=== PATIENT | female | born 1930 | race Hispanic/Latino ===

== ENCOUNTER 2017-05-11 08:16 | Observation (INO) | payer MEDICARE ==
[~2017-05-11] VITALS: Ht 152.4 cm; Wt 71.7 kg
[~2017-05-11 08:16] MED LIST: D-ME118S47 PO; ESCI20TA36 PO; IBUP-2353 PO; LORA1TAB3 PO; LORA2TAB2 PO
[2017-05-11 08:46] LABS: BASOPHILS % (AUTO) 0.6 % (0.0-5.0); HEMATOCRIT 48.5 % (36-48); LYMPHOCYTES % (AUTO) 20.8 % (21.0-51.0); MEAN CORPUSCULAR HEMOGLOBIN 32.8 pg (27.0-33.0); MEAN CORPUSCULAR HGB CONC 34.9 g/dL (32.0-36.0); MEAN CORPUSCULAR VOLUME 94.1 fL (79-99); MONOCYTES % (AUTO) 5.7 % (3.0-13.0); NEUTROPHILS % (AUTO) 71.9 % (40.0-77.0); NUCLEATED RED BLOOD CELLS 0.1 % (0.0-0.19); PLATELET COUNT (AUTO) 212 K/uL (130-400); RED BLOOD CELL COUNT(AUTO) 5.16 MIL/uL (4.00-5.50); WHITE BLOOD COUNT (AUTO) 6.1 K/uL (4.8-10.8)
[2017-05-11 08:54] LABS: POTASSIUM 4.3 mmol/L (3.5-5.1)
[2017-05-11 08:58] LABS: INR 0.98 (0.85-1.15); PARTIAL THROMBOPLASTIN TIME 27.5 SEC (26.3-35.5); PROTHROMBIN TIME 10.3 SEC (9.6-11.6)
[2017-05-11 09:11] LABS: ALBUMIN 3.6 g/dL (3.5-5.0); BILIRUBIN,TOTAL 0.6 mg/dL (0.2-1.0); CREATINE KINASE MB 1.3 ng/mL (0.5-3.6)
[2017-05-11 10:03] LABS: APPEARANCE,URINE Clear (CLEAR); BILIRUBIN,URINE Negative (NEGATIVE); COLOR,URINE Yellow (YELLOW); GLUCOSE, URINE (UA) Negative (NEGATIVE); KETONES,URINE Negative (NEGATIVE); LEUKOCYTE ESTERASE ,URINE Trace (NEGATIVE); NITRATE,URINE Positive (NEGATIVE); OCCULT BLOOD,URINE Negative (NEGATIVE); PH,URINE 6.5 (5.0-8.0); PROTEIN,URINE Negative (NEGATIVE); UROBILINOGEN,URINE 0.2 mg/dL (0.2-1.0)
[2017-05-11 10:28] LABS: BACTERIA,URINE Moderate /HPF (None Seen); RBC,URINE None Seen /HPF (0-1)
[2017-05-11] MEDS ORDERED: CEFTRIAXONE SODIUM 1 GM ONE (11:29)
[2017-05-11] MEDS ORDERED: POTASSIUM CHLORIDE 20MEQ/100ML 100 ML IV PRN (12:15)
[2017-05-11] MEDS ORDERED: POTASSIUM CHLORIDE 20 MEQ ERTAB PO PRN (12:15)
[2017-05-11] MEDS ORDERED: ONDANSETRON HCL 4 MG/2 ML VIAL IV PRN (12:15)
[2017-05-11] MEDS ORDERED: CEFTRIAXONE 1GM/D5W 50ML 50 ML IV SCH (12:15)
[2017-05-11] MEDS ORDERED: LACTULOSE 20 GM/30 ML UDCUP PO PRN (12:15)
[2017-05-11] MEDS ORDERED: NITROGLYCERIN 0.4 MG SL TAB SL PRN (12:15)
[2017-05-11] MEDS ORDERED: LIDOCAINE HCL-MPF 1% 2ML VIAL IVP PRN (12:15)
[2017-05-11] MEDS ORDERED: ACETAMINOPHEN 325 MG TAB PO PRN ×2 (12:15)
[2017-05-11] MEDS ORDERED: HYDRALAZINE HCL 20 MG/ML VIAL IV PRN (12:15)
[2017-05-11] MEDS ORDERED: MAG HYDROX/AL HYDROX/SIMETH ES 30 ML SUSP UDCUP PO PRN (12:15)
[2017-05-11] MEDS ORDERED: ACETAMINOPHEN-CODEINE 300/30MG TAB PO PRN (12:15)
[2017-05-11] MEDS ORDERED: MORPHINE SULFATE 2 MG/ML 1ML SYG IV PRN (12:15)
[2017-05-11] MEDS ORDERED: POTASSIUM CHLORIDE 10% ELIXIR 20 MEQ/15 ML UDCUP PO PRN (12:15)
[2017-05-11] MEDS ORDERED: GUAIFENESIN-DM 200/20 MG 10 ML PO PRN (12:15)
[2017-05-11 19:55] VITALS: BP 136/83
[2017-05-11] MEDS: SODIUM CHLORIDE 0.9% 1000ML 1,000 ML IV SCH (20:28)
[2017-05-11 23:42] VITALS: BP 140/83
[2017-05-12] MEDS: SODIUM CHLORIDE 0.9% 1000ML 1,000 ML IV SCH (01:32)
[2017-05-12 03:54] VITALS: BP 124/73
[2017-05-12 04:09] LABS: HEMATOCRIT 47.2 % (36-48); MEAN CORPUSCULAR HEMOGLOBIN 32.1 pg (27.0-33.0); MEAN CORPUSCULAR HGB CONC 34.4 g/dL (32.0-36.0); MEAN CORPUSCULAR VOLUME 93.3 fL (79-99); PLATELET COUNT (AUTO) 213 K/uL (130-400); RED BLOOD CELL COUNT(AUTO) 5.06 MIL/uL (4.00-5.50); RED CELL DISTRIBUTION WIDTH 14.2 % (11.0-15.5); WHITE BLOOD COUNT (AUTO) 5.5 K/uL (4.8-10.8)
[2017-05-12 04:31] LABS: CREATININE 0.9 mg/dL (0.5-1.5); POTASSIUM 3.9 mmol/L (3.5-5.1)
[2017-05-12 08:00] VITALS: BP 132/70
[2017-05-12] MEDS ORDERED: LEVO250T2 PO (08:46)
[2017-05-12] MEDS ORDERED: FAMOTIDINE/PF 20 MG/2 ML VIAL IV SCH (09:00)
[2017-05-12] MEDS ORDERED: CEFTRIAXONE SODIUM 1 GM IVP SCH (11:00)
== END 2017-05-12 15:10 | disposition home or self-care (01) ==
LOC: EDH 08:16 → EDHIP 12:12 → 3AH 19:36
PROVIDERS: ADMIT Internal Medicine; ATTEND Internal Medicine
DX: M47.812 Spondylosis without myelopathy or radiculopathy, cervical region (principal); N39.0 Urinary tract infection, site not specified; I10 Essential (primary) hypertension; F41.9 Anxiety disorder, unspecified; F32.9 Major depressive disorder, single episode, unspecified; R79.1 Abnormal coagulation profile; Z90.710 Acquired absence of both cervix and uterus
CPT/HCPCS: 36415 ×2; 70450; 71045; 72125; 80048; 80053; 81001; 82550; 82553; 84484; 85025; 85027; 85610; 85730; 87088; 93005; 96361; 96374; 96375; 99285; G0378 ×27; J0696 ×3; J2405; J3490; J7030

== ENCOUNTER 2019-02-08 14:06 | Inpatient (IN) | payer MEDICARE ==
[2019-02-08] VITALS (15 sets, daily range): BP systolic 75–129; BP diastolic 36–69
[~2019-02-08] VITALS: Ht 157.5 cm; Wt 83.6 kg
[~2019-02-08 14:06] MED LIST changes: -D-ME118S47 PO; +HYDR-4030 PO; -IBUP-2353 PO; +IBUP-2784 PO; -LORA2TAB2 PO; +QUET50TA55 PO
[2019-02-08] MEDS ORDERED: SODIUM CHLORIDE 0.9% 500ML 500 ML IV ONE ×2 (14:24→15:36)
[2019-02-08 14:28] LABS: BASOPHILS % (AUTO) 0.7 % (0.0-5.0); EOSINOPHILS % (AUTO) 0.1 % (0.0-8.0); LYMPHOCYTES % (AUTO) 6.7 % (21.0-51.0); MEAN CORPUSCULAR HEMOGLOBIN 31.5 pg (27.0-33.0); MEAN CORPUSCULAR HGB CONC 33.7 g/dL (32.0-36.0); MEAN CORPUSCULAR VOLUME 93.5 fL (79-99); MONOCYTES % (AUTO) 11.8 % (3.0-13.0); NEUTROPHILS % (AUTO) 80.7 % (40.0-77.0); PLATELET COUNT (AUTO) 188 K/uL (130-400); RED CELL DISTRIBUTION WIDTH 13.8 % (11.0-15.5); WHITE BLOOD COUNT (AUTO) 9.5 K/uL (4.8-10.8)
[2019-02-08 14:42] LABS: INR 1.13 (0.85-1.15); PARTIAL THROMBOPLASTIN TIME 27.1 SEC (26.3-35.5); PROTHROMBIN TIME 11.8 SEC (9.6-11.6)
[2019-02-08 14:51] LABS: ALBUMIN 2.7 g/dL (3.5-5.0); BILIRUBIN,TOTAL 0.9 mg/dL (0.2-1.0); TOTAL PROTEIN, SERUM 6.3 g/dL (6.0-8.3)
[2019-02-08 14:58] LABS: ABG BASE EXCESS 5.1 mmol/L (-2.0-3.0); ABG HCO3 32.3 mmol/L (21.0-28.0); ABG OXYGEN SATURATION 95.3 % (95.0-99.0); ABG PCO2 58 mmHg (32-45)
[2019-02-08] MEDS ORDERED: SODIUM CHLORIDE 0.9% 50 ML IV ONE (14:59)
[2019-02-08] MEDS ORDERED: AMIODARONE HCL 50 MG/ML 3 ML VIAL ONE (14:59)
[2019-02-08] MEDS ORDERED: AMIODARONE HCL 150 MG in DEXTROSE 5%-WATER 100 ML IV SCH (15:06)
[2019-02-08] MEDS ORDERED: AMIODARONE HCL 900 MG in DEXTROSE 5%-WATER 500 ML IV NR (15:06)
[2019-02-08 15:12] LABS: TROPONIN I 0.07 ng/mL (0.00-0.06)
[2019-02-08 15:14] LABS: APPEARANCE,URINE CLOUDY (CLEAR); BILIRUBIN,URINE MODERATE (NEGATIVE); COLOR,URINE YELLOW (YELLOW); GLUCOSE, URINE (UA) NEGATIVE (NEGATIVE); KETONES,URINE 5 mg/dL (NEGATIVE); LEUKOCYTE ESTERASE ,URINE MODERATE (NEGATIVE); NITRATE,URINE NEGATIVE (NEGATIVE); OCCULT BLOOD,URINE MODERATE (NEGATIVE); PH,URINE 5.5 (5.0-8.0); PROTEIN,URINE 100 mg/dL (NEGATIVE)
[2019-02-08 15:27] LABS: BACTERIA,URINE Many /HPF (None Seen); MUCUS,URINE Few LPF (None Seen)
[2019-02-08] MEDS ORDERED: CEFTRIAXONE SODIUM 1 GM ONE (15:37)
[2019-02-08] MEDS: CEFTRIAXONE SODIUM 1 GM IV SCH (15:39)
[2019-02-08 15:54] LABS: AMPHET/METH SCREEN,URINE NEGATIVE (NEGATIVE); BARBITURATE SCREEN, URINE NEGATIVE (NEGATIVE); BENZODIAZEPINES SCREEN,URINE NEGATIVE (NEGATIVE); CANNABINOID SCREEN,URINE NEGATIVE (NEGATIVE); COCAINE SCREEN,URINE NEGATIVE (NEGATIVE); OPIATE SCREEN,URINE NEGATIVE (NEGATIVE); PHENCYCLIDINE SCREEN,URINE NEGATIVE (NEGATIVE)
[2019-02-08] MEDS ORDERED: ONDANSETRON HCL 4 MG/2 ML VIAL IVP PRN (16:30)
[2019-02-08] MEDS: DILTIAZEM HCL 60 MG TABLET PO SCH ×2 (16:30→22:30)
[2019-02-08] MEDS ORDERED: ACETAMINOPHEN 325 MG TAB PO PRN (16:30)
[2019-02-08 16:53] LABS: MAGNESIUM 1.4 mg/dL (1.80-2.40); PHOSPHORUS 3.3 mg/dL (2.5-4.9)
[2019-02-08] MEDS ORDERED: SODIUM CHLORIDE 0.9% 1000ML 1,000 ML IV ONE ×4 (17:05→19:01)
[2019-02-08] MEDS ORDERED: ACETAMINOPHEN 650 MG SUPPOSITORY RC ONE (17:51)
[2019-02-08] MEDS ORDERED: MEROPENEM 1 GM VIAL ONE (18:11)
[2019-02-08] MEDS ORDERED: MAGNESIUM 2GM PREMIX 50ML 50 ML IV ONE (18:11)
[2019-02-08] MEDS ORDERED: ACETAMINOPHEN 650 MG SUPPOSITORY RC PRN (18:15)
[2019-02-08] MEDS ORDERED: RENAL DOSE IV SCH (18:15)
[2019-02-08] MEDS: MEROPENEM 500 MG VIAL IVP SCH (18:17)
[2019-02-08] MEDS ORDERED: ENOXAPARIN SODIUM 40 MG/0.4 ML SYRINGE SQ ONE (19:07)
[2019-02-08] MEDS ORDERED: DILTIAZEM HCL 125 MG/25 ML VIAL IV ONE (19:15)
[2019-02-08] MEDS ORDERED: SODIUM CHLORIDE 0.9% 100 ML IV ONE (19:15)
[2019-02-08] MEDS ORDERED: ASPIRIN 300 MG SUPPOSITORY PR ONE ×2 (19:16→21:55)
[2019-02-08] MEDS ORDERED: ENOXAPARIN SODIUM 100 MG/1 ML SQ ONE (19:17)
[2019-02-08 19:38] LABS: ABG BASE EXCESS 1.2 mmol/L (-2.0-3.0); ABG HCO3 29.4 mmol/L (21.0-28.0); ABG OXYGEN SATURATION 93.1 % (95.0-99.0); ABG PCO2 62 mmHg (32-45)
[2019-02-08] MEDS: SODIUM CHLORIDE 0.9% 1000ML 1,000 ML IV SCH (19:50)
[2019-02-08] MEDS ORDERED: VANCOMYCIN PROTOCOL PER PHARMACY IV SCH (21:00)
[2019-02-08] MEDS ORDERED: COMPOUND IV REFRIGERATED 1 EACH IVSOLN MISC PRN (21:00)
[2019-02-08] MEDS ORDERED: FAMOTIDINE/PF 20 MG/2 ML VIAL IV SCH (21:00)
[2019-02-08] MEDS ORDERED: VANCOMYCIN 1.5 GM in SODIUM CHLORIDE 0.9% 250 ML IV ONE (21:00)
[2019-02-08] MEDS ORDERED: ACET-2123 PO (23:07)
[2019-02-08] MEDS ORDERED: OMEP-50 PO (23:08)
[2019-02-08] MEDS ORDERED: DONE5TAB33 PO (23:10)
[2019-02-08] MEDS ORDERED: TRAM50TA4 PO (23:11)
[2019-02-08] MEDS ORDERED: RISP1TAB26 PO (23:12)
[2019-02-09] VITALS (77 sets, daily range): BP systolic 77–151; BP diastolic 35–88
[2019-02-09] MEDS: SODIUM CHLORIDE 0.9% 1000ML 1,000 ML IV SCH ×5 (02:26→21:24)
[2019-02-09] MEDS: MEROPENEM 500 MG VIAL IVP SCH ×3 (02:31→17:15)
[2019-02-09 03:32] LABS: BASOPHILS % (AUTO) 0.7 % (0.0-5.0); EOSINOPHILS % (AUTO) 0.6 % (0.0-8.0); HEMATOCRIT 41.5 % (36-48); LYMPHOCYTES % (AUTO) 7.2 % (21.0-51.0); MEAN CORPUSCULAR HEMOGLOBIN 31.5 pg (27.0-33.0); MEAN CORPUSCULAR HGB CONC 33.1 g/dL (32.0-36.0); MONOCYTES % (AUTO) 9.5 % (3.0-13.0); PLATELET COUNT (AUTO) 166 K/uL (130-400); RED BLOOD CELL COUNT(AUTO) 4.37 MIL/uL (4.00-5.50); RED CELL DISTRIBUTION WIDTH 13.7 % (11.0-15.5); WHITE BLOOD COUNT (AUTO) 12.2 K/uL (4.8-10.8)
[2019-02-09 03:51] LABS: ALANINE AMINOTRANSFERASE 19 U/L (12-78); ALBUMIN 2.3 g/dL (3.5-5.0); ASPARTATE AMINOTRANSFERASE 28 U/L (10-37); BILIRUBIN,TOTAL 0.7 mg/dL (0.2-1.0); CARBON DIOXIDE 33 mmol/L (21-32); CHLORIDE 102 mmol/L (101-111); CREATININE 1.1 mg/dL (0.5-1.5); GLOMERULAR FILTR. RATE CALC 50 mL/min (>60); GLUCOSE,RANDOM 103 mg/dL (70-105); POTASSIUM 3.7 mmol/L (3.5-5.1); SODIUM SERUM 139 mmol/L (136-145); TOTAL PROTEIN, SERUM 5.6 g/dL (6.0-8.3); UREA NITROGEN, BLOOD 19 mg/dL (7-18)
[2019-02-09 04:01] LABS: ABG BASE EXCESS 2.9 mmol/L (-2.0-3.0); ABG HCO3 30.6 mmol/L (21.0-28.0); ABG OXYGEN SATURATION 93.4 % (95.0-99.0); ABG PCO2 60 mmHg (32-45)
[2019-02-09] MEDS: DILTIAZEM HCL 60 MG TABLET PO SCH ×4 (04:30→21:23)
[2019-02-09] MEDS: FAMOTIDINE/PF 20 MG/2 ML VIAL IV SCH (08:12)
[2019-02-09] MEDS: DILTIAZEM HCL 125 MG/25 ML 125 MG in SODIUM CHLORIDE 0.9% 100 ML IV SCH ×2 (08:13→18:12)
[2019-02-09] MEDS: ENOXAPARIN SODIUM 80 MG/0.8 ML SQ SCH (08:15)
--- NOTE | 2019-02-09 08:41 | NUR ---
OLIVER MATTHEWS, IN ROOM ASSESSING PT. AND SPEAKING WITH PT.'S DAUGHTER AT BEDSIDE RE:PLAN OF CARE; QUESTIONS ANSWERED BY OLIVER MATTHEWS. UPDATED Ayan MEREDITH ON CURRENT MEDICATION REGIMEN AND VS., VERBALIZED UNDERSTANDING. DAUGHTER VERBALIZED UNDERSTANDING RE:PLAN OF CARE.
[2019-02-09] MEDS ORDERED: ENOXAPARIN SODIUM 30 MG/0.3 ML SQ SCH (09:00)
--- NOTE | 2019-02-09 11:43 | NUR ---
ARUN Fields met with pt and daughter Amina. Sw eduated pt and daughter on MPOA and pt wanting daughter to be decision maker. Pt unable to sign name, made alejandro as best she could in front of several witnesses. Original given to daughter and copy placed on chart.
--- NOTE | 2019-02-09 12:14 | NUR ---
DR. PABLO IN ROOM ASSESSING/SPEAKING WITH PT. ALSO SPEAKING WITH PT.'S DAUGHTER AT BEDSIDE RE:PLAN OF CARE. QUESTIONS ANSWERED BY DR. PABLO, DAUGHTER VERBALIZED UNDERSTANDING.
--- NOTE | 2019-02-09 13:33 | NUR ---
DR. HANSEN IN ROOM ASSESSING PT.; UPDATED ON CURRENT MEDICATION REGIMEN AND VS, DR. HANSEN VIEWING CXR. ORDERS RECEIVED.
[2019-02-09] MEDS ORDERED: LORAZEPAM 1 MG TABLET PO PRN (13:45)
[2019-02-09] MEDS ORDERED: ACETAMINOPHEN EXTRA STRENGTH 500 MG TABLET PO PRN (13:45)
[2019-02-09] MEDS ORDERED: TRAMADOL HCL 50 MG TABLET PO PRN (13:45)
--- NOTE | 2019-02-09 14:00 | NUR ---
REPOSITIONED FOR COMFORT. CALL LIGHT WITHIN REACH. BED LOW SIDE RAILS UP X3. ROOM DOOR OPEN, VISIBLE FROM NURSE'S STATION.
[2019-02-09 15:16] LABS: CREATINE KINASE, TOTAL 39 U/L (21-232); MYOGLOBIN 66 ng/mL (10-92); TROPONIN I < 0.04 ng/mL (0.00-0.06)
[2019-02-09] MEDS: CEFTRIAXONE SODIUM 1 GM IV SCH (15:37)
[2019-02-09] MEDS: FUROSEMIDE 10 MG/ML 2ML VIAL IV SCH (15:37)
--- NOTE | 2019-02-09 16:57 | NUR ---
DC PLAN PATIENT NOTED CONFUSED, MUMBLING AND GRABBING THINGS THAT ARE NOT THERE IN FRONT OF HER. DAUGHTER AT BEDSIDE. PER DAUGHTER, PATIENT LIVES WITH HER, WAS INDEPENDENT 1 MONTH AGO BUT NOW REQUIRES TOTAL ASSISTANCE WITH ALL ADLS. HAS PROVIDER SERVICES DAILY FOR 6HRS. ALSO HAS OXYGEN, HOSPITAL BED, WHEELCHAIR, AND WALKER. DAUGHTER MADE AWARE OF ORDER FROM MD RECOMMENDING SNF. PER DAUGHTER, DECLINING SNF AT THE MOMENT, FEELS SAFE TO RETURN HOME. Addendum: 02/09/19 at 1701 by ROME LO Amended: Links added.
[2019-02-09] MEDS: VANCOMYCIN 1GM+NS 250ML 250 ML IV SCH (17:15)
[2019-02-09] MEDS: DONEPEZIL HCL 5 MG TAB PO SCH (17:16)
--- NOTE | 2019-02-09 17:29 | NUR ---
RECEIVED CALL FROM DR. Gema MEJIA, STATES WILL BE IN TO SEE PT. LATER TODAY.
--- NOTE | 2019-02-09 17:58 | NUR ---
DR. Gema MEJIA IN ROOM ASSESSING PT. AND SPEAKING WITH PT.'S DAUGHTER AT BEDSIDE. QUESTIONS ANSWERED BY DR. Gema MEJIA.
--- NOTE | 2019-02-09 18:02 | NUR ---
DR. Gema MEJIA REVIEWING [facility] ON [facility].
--- NOTE | 2019-02-09 18:20 | NUR ---
DILTIAZEM GTT DECREASED TO 5MG/HR VIA IV PUMP.
[2019-02-09] MEDS: RISPERIDONE 1 MG TABLET PO SCH (21:23)
[2019-02-10] VITALS (39 sets, daily range): BP systolic 82–134; BP diastolic 40–101
[2019-02-10] MEDS: MEROPENEM 500 MG VIAL IVP SCH ×3 (02:37→16:38)
[2019-02-10] MEDS: FUROSEMIDE 10 MG/ML 2ML VIAL IV SCH (02:38)
[2019-02-10 03:37] LABS: HEMATOCRIT 39.5 % (36-48); MEAN CORPUSCULAR HEMOGLOBIN 31.7 pg (27.0-33.0); MEAN CORPUSCULAR HGB CONC 33.3 g/dL (32.0-36.0); MEAN CORPUSCULAR VOLUME 95.2 fL (79-99); PLATELET COUNT (AUTO) 190 K/uL (130-400); RED BLOOD CELL COUNT(AUTO) 4.15 MIL/uL (4.00-5.50); RED CELL DISTRIBUTION WIDTH 13.5 % (11.0-15.5); WHITE BLOOD COUNT (AUTO) 11.1 K/uL (4.8-10.8)
[2019-02-10 03:44] LABS: HEMOGLOBIN A1C 5.8 % (4.0-6.0)
[2019-02-10 03:51] LABS: CARBON DIOXIDE 31 mmol/L (21-32); CHLORIDE 104 mmol/L (101-111); CREATININE 0.9 mg/dL (0.5-1.5); GLOMERULAR FILTR. RATE CALC 63 mL/min (>60); GLUCOSE,RANDOM 121 mg/dL (70-105); PHOSPHORUS 2.7 mg/dL (2.5-4.9); POTASSIUM 3.7 mmol/L (3.5-5.1); SODIUM SERUM 141 mmol/L (136-145); UREA NITROGEN, BLOOD 19 mg/dL (7-18)
[2019-02-10] MEDS ORDERED: MAGNESIUM 2GM PREMIX 50ML 50 ML IV ONE (05:04)
[2019-02-10] MEDS: DILTIAZEM HCL 60 MG TABLET PO SCH ×3 (05:09→16:39)
[2019-02-10] MEDS: SODIUM CHLORIDE 0.9% 1000ML 1,000 ML IV SCH (08:27)
[2019-02-10] MEDS: Escitalopram Oxalate 20 MG PO SCH (09:00)
[2019-02-10] MEDS: ENOXAPARIN SODIUM 80 MG/0.8 ML SQ SCH (09:25)
[2019-02-10] MEDS: RISPERIDONE 1 MG TABLET PO SCH ×2 (09:25→21:14)
[2019-02-10] MEDS: FAMOTIDINE/PF 20 MG/2 ML VIAL IV SCH (09:25)
--- NOTE | 2019-02-10 09:53 | NUR ---
DYSPHAGIA EVAL COMPLETED. +S/S OF ASPIRATION WITH THIN LIQUIDS. RECOMMEND PUREED TEXTURE AND NECTAR THICK LIQUIDS; PILLS CRUSHED WITH PUREE. PATIENT WOULD BENEFIT FROM SKILLED DYSPHAGIA INTERVENTION TO ADDRESS DEFICITS IN ORAL MOTOR FUNCTION AND OVERALL SWALLOW FUNCTION. LTG 1: PATIENT WILL IMPROVE ORAL MOTOR FUNCTION TO FACILITATE BOLUS PREPARATION, CONTROL, AND MANIPULATION. LTG 2: PATIENT WILL SAFELY CONSUME LEAST RESTRICTIVE DIET WITH NO S/S OF ASPIRATION/PENETRATION OBSERVED. STG 1: PATIENT WILL PARTICIPATE IN ACTIVE ORAL MOTOR EXERCISES TO IMPROVE LABIAL STRENGTH, TONE, AND ROM IN SETS OF 5X5. STG 2: PATIENT WILL PARTICIPATE IN ACTIVE ORAL MOTOR EXERCISES TO IMPROVE LINGUAL STRENGTH, TONE, AND ROM IN SETS OF 5X5. STG 3: PATIENT WILL SAFELY CONSUME PUREED TEXTURE WITH NO OVERT S/S OF ASPIRATION/PENETRATION IN 100% OF TRIALS. STG 4: PATIENT WILL SAFELY CONSUME NECTAR THICK LIQUIDS WITH NO OVERT S/S OF ASPIRATION/PENETRATION IN 100% OF TRIALS. STG 5: PATIENT WILL UTILIZE SAFE SWALLOW COMPENSATORY STRATEGIES DURING ORAL INTAKE WITH 100% ACCURACY. Addendum: 02/10/[address] [place] RIBERA Amended: Links added.
[2019-02-10] MEDS: LORAZEPAM 2 MG/ML 1 ML VIAL IVP PRN (16:32)
[2019-02-10] MEDS: VANCOMYCIN 1GM+NS 250ML 250 ML IV SCH (16:38)
[2019-02-10] MEDS: DONEPEZIL HCL 5 MG TAB PO SCH (16:38)
[2019-02-10] MEDS ORDERED: IOHEXOL-350 75 ML VIAL IV ONE (17:37)
[2019-02-10] MEDS: DILTIAZEM HCL 125 MG/25 ML 125 MG in SODIUM CHLORIDE 0.9% 100 ML IV SCH (18:15)
[2019-02-10] MEDS: METOPROLOL TARTRATE 25 MG TAB PO SCH (18:16)
[2019-02-10] MEDS: ALPRAZOLAM 0.5 MG TABLET PO SCH (21:14)
[2019-02-10] MEDS ORDERED: ENOXAPARIN SODIUM 80 MG/0.8 ML SQ SCH (21:30)
[2019-02-10] MEDS ORDERED: PHARMACY COMMUNICATION MISC SCH (21:30)
[2019-02-11] VITALS (28 sets, daily range): BP systolic 59–120; BP diastolic 32–70
[2019-02-11] MEDS ORDERED: DILTIAZEM HCL 60 MG TABLET PO SCH
[2019-02-11] MEDS: METOPROLOL TARTRATE 25 MG TAB PO SCH ×4 (01:22→18:57)
[2019-02-11] MEDS: MEROPENEM 500 MG VIAL IVP SCH ×3 (01:32→18:57)
[2019-02-11] MEDS: Escitalopram Oxalate 20 MG PO SCH (09:00)
[2019-02-11] MEDS ORDERED: ENOXAPARIN SODIUM 80 MG/0.8 ML SQ SCH (09:00)
[2019-02-11 09:16] LABS: BASOPHILS % (AUTO) 0.6 % (0.0-5.0); EOSINOPHILS % (AUTO) 0.1 % (0.0-8.0); HEMATOCRIT 41.2 % (36-48); LYMPHOCYTES % (AUTO) 4.8 % (21.0-51.0); MEAN CORPUSCULAR HEMOGLOBIN 31.5 pg (27.0-33.0); MEAN CORPUSCULAR HGB CONC 32.9 g/dL (32.0-36.0); MEAN CORPUSCULAR VOLUME 95.7 fL (79-99); MONOCYTES % (AUTO) 8.4 % (3.0-13.0); NEUTROPHILS % (AUTO) 86.1 % (40.0-77.0); PLATELET COUNT (AUTO) 203 K/uL (130-400); WHITE BLOOD COUNT (AUTO) 9.9 K/uL (4.8-10.8)
[2019-02-11] MEDS: ALPRAZOLAM 0.5 MG TABLET PO SCH ×2 (09:29→20:55)
[2019-02-11] MEDS: FAMOTIDINE/PF 20 MG/2 ML VIAL IV SCH (09:29)
[2019-02-11] MEDS: RISPERIDONE 1 MG TABLET PO SCH ×2 (09:29→20:55)
[2019-02-11 09:31] LABS: CARBON DIOXIDE 33 mmol/L (21-32); CHLORIDE 105 mmol/L (101-111); CREATININE 0.9 mg/dL (0.5-1.5); GLOMERULAR FILTR. RATE CALC 63 mL/min (>60); GLUCOSE,RANDOM 142 mg/dL (70-105); SODIUM SERUM 143 mmol/L (136-145); UREA NITROGEN, BLOOD 20 mg/dL (7-18)
[2019-02-11 09:34] LABS: ALBUMIN 2.2 g/dL (3.5-5.0); PHOSPHORUS 2.8 mg/dL (2.5-4.9)
[2019-02-11] MEDS: VERAPAMIL HCL 80 MG TABLET PO SCH ×3 (09:47→20:55)
--- NOTE | 2019-02-11 12:45 | NUR ---
Nutrition Intervention: Nutrition consult due to poor appetite/adv. age. Pt. with advanced age of 88y.o. Pt. admitted with Dx of [place] A. Fib. with RVR. Pt. on Heart Healthy Pureed diet with Racetrack Thick Liquids. As per family members, pt. with poor p.o. intake. Labs reviewed(Alb 2.2). Spoke with pt's family members regarding nutritional supplementation and agreed to let pt. try. LBM: 02/07/19. SR-16, loose. BMI: 31.2, overweight for age. Pt. S/P dysphagia evaluation on 02/10/19- TOOLER rec. Pureed texture/Racetrack Thick Liquids. Recommendations: 1) Continue current diet. 2) Rec. Vanilla or [place] Ensure BID with B'fast and dinner meals. 3) Rec. stool softener or laxative to help alleviate lower GI distress. 4) Continue to monitor pt's nutritional status. 5) Consult RD as nutrition concerns arise. Addendum: 02/11/19 at [address] Amended: Links added.
[2019-02-11] MEDS: IPRATROPIUM/ALBUTEROL SULFATE 3 ML SOLUTION IH SCH ×3 (13:28→23:16)
[2019-02-11] MEDS: DONEPEZIL HCL 5 MG TAB PO SCH (18:57)
--- NOTE | 2019-02-11 20:38 | NUR ---
RECEIVED CALL FROM DR BERG. UPDATED REGARDING PT STATUS, V/S AND ALL RECENT LAB RESULTS. ORDERS RECEIVED AND CARRIED OUT.
[2019-02-11] MEDS: APIXABAN 5 MG TABLET PO SCH (20:55)
[2019-02-11] MEDS: VANCOMYCIN 1GM+NS 250ML 250 ML IV SCH (20:57)
[2019-02-12] VITALS (29 sets, daily range): BP systolic 73–135; BP diastolic 30–81
[2019-02-12] MEDS: METOPROLOL TARTRATE 25 MG TAB PO SCH ×5 (00:21→22:00)
[2019-02-12] MEDS: MEROPENEM 500 MG VIAL IVP SCH ×3 (03:06→17:25)
[2019-02-12 04:18] LABS: POTASSIUM 3.6 mmol/L (3.5-5.1)
[2019-02-12] MEDS: IPRATROPIUM/ALBUTEROL SULFATE 3 ML SOLUTION IH SCH ×4 (06:20→23:18)
[2019-02-12] MEDS: FAMOTIDINE/PF 20 MG/2 ML VIAL IV SCH (08:24)
[2019-02-12] MEDS: ALPRAZOLAM 0.5 MG TABLET PO SCH ×2 (08:24→20:48)
[2019-02-12] MEDS: APIXABAN 5 MG TABLET PO SCH ×2 (08:24→20:48)
[2019-02-12] MEDS: VERAPAMIL HCL 80 MG TABLET PO SCH ×3 (08:24→20:49)
[2019-02-12] MEDS: RISPERIDONE 1 MG TABLET PO SCH ×2 (08:25→20:48)
[2019-02-12] MEDS: Escitalopram Oxalate 20 MG PO SCH (08:25)
[2019-02-12] MEDS: SODIUM CHLORIDE 0.9% 1000ML 1,000 ML IV SCH ×2 (10:45→23:39)
--- NOTE | 2019-02-12 12:00 | NUR ---
DNR STATUS DR BERG SPOKE EXTENSIVELY WITH PATIENT'S DAUGHTER REGARDING DNR STATUS. DAUGHTER STATES THAT SHE NEEDS TO SPEAK WITH HER SISTER ABOUT IT BUT THAT SHE DOES WANT HER TO GO "NATURALLY". CONVERSATION WAS IN FRISIAN AND PATIENT WAS ABLE TO ASK MULTIPLE QUESTIONS. WILL WAIT FOR DECISION AFTER DISCUSSION WITH SISTER.
--- NOTE | 2019-02-12 16:15 | NUR ---
PATIENT NOW DNR DAUGHTERS NOW BOTH HERE AND STATE THAT THEY DO WANT TO MAKE HER DNR. THEY UNDERSTAND THAT THIS DOES NOT AFFECT HOW WE WILL TREAT HER UNLESS SHE STOP BREATHING/HEART STOPS. DNR SIGNED
[2019-02-12] MEDS: VANCOMYCIN 1GM+NS 250ML 250 ML IV SCH (17:20)
[2019-02-12] MEDS: DONEPEZIL HCL 5 MG TAB PO SCH (17:20)
--- NOTE | 2019-02-12 20:00 | NUR ---
ASSESSMENT PT RESTING QUIETLY IN BED, IV FLUIDS INFUSING, DAUGHTER AT BEDSIDE. ASSESSMENT COMPLETED, CALLBELL REVIEWED AND WITHIN REACH. MONITORS REVIEWED AND ADJUSTED. WHITE BOARD UP-DATED. ASSESSMENT COMPLETED, SEE FLOW SHEET.
[2019-02-13] VITALS (12 sets, daily range): BP systolic 90–138; BP diastolic 50–97
[2019-02-13] MEDS: MEROPENEM 500 MG VIAL IVP SCH ×3 (02:38→18:29)
--- NOTE | 2019-02-13 03:23 | NUR ---
ASSESSMENT PT RESTING QUIETLY IN BED, IV FLUIDS INFUSING, DAUGHTER AT BEDSIDE. ASSESSMENT COMPLETED, SEE FLOW SHEET. CALLBELL WITHIN REACH.
[2019-02-13 03:27] LABS: BASOPHILS % (AUTO) 0.8 % (0.0-5.0); EOSINOPHILS % (AUTO) 0.5 % (0.0-8.0); HEMATOCRIT 38.3 % (36-48); LYMPHOCYTES % (AUTO) 10.9 % (21.0-51.0); MEAN CORPUSCULAR HEMOGLOBIN 31.4 pg (27.0-33.0); MEAN CORPUSCULAR HGB CONC 32.7 g/dL (32.0-36.0); NEUTROPHILS % (AUTO) 75.8 % (40.0-77.0); PLATELET COUNT (AUTO) 227 K/uL (130-400); RED BLOOD CELL COUNT(AUTO) 3.99 MIL/uL (4.00-5.50); RED CELL DISTRIBUTION WIDTH 13.8 % (11.0-15.5); WHITE BLOOD COUNT (AUTO) 6.7 K/uL (4.8-10.8)
[2019-02-13 03:46] LABS: B-TYPE NATRIURETIC PEPTIDE 603 pg/mL (0-100)
[2019-02-13] MEDS: IPRATROPIUM/ALBUTEROL SULFATE 3 ML SOLUTION IH SCH ×4 (06:57→23:48)
--- NOTE | 2019-02-13 07:00 | NUR ---
RECEIVED REPORT FROM ROME ANDREW.
[2019-02-13] MEDS: VERAPAMIL HCL 80 MG TABLET PO SCH ×3 (07:53→21:00)
[2019-02-13] MEDS: FAMOTIDINE/PF 20 MG/2 ML VIAL IV SCH (07:53)
[2019-02-13] MEDS: ALPRAZOLAM 0.5 MG TABLET PO SCH ×2 (07:53→21:39)
[2019-02-13] MEDS: METOPROLOL TARTRATE 25 MG TAB PO SCH ×3 (07:54→21:38)
[2019-02-13] MEDS: APIXABAN 5 MG TABLET PO SCH ×2 (07:54→21:38)
[2019-02-13] MEDS: RISPERIDONE 1 MG TABLET PO SCH ×2 (07:54→21:38)
--- NOTE | 2019-02-13 08:00 | NUR ---
REMOVED BI PAP MASK BY RT CANDIDO AND PLACED ON 5L NC FOR PT TO EAT BREAKFAST MEAL. O2 SAT 96-94%. WILL CONTINUE TO MONITOR.
--- NOTE | 2019-02-13 08:10 | NUR ---
GIVEN SCHEDULED MEDICATIONS CRUSHED AND WITH APPLESAUCE. TOLERATED WELL. DAUGHTER, CHRISTINA FEEDING PATIENT. WILL CONTINUE TO MONITOR.
[2019-02-13] MEDS: Escitalopram Oxalate 20 MG PO SCH (09:00)
--- NOTE | 2019-02-13 10:00 | NUR ---
DR. PABLO AND HARDY NELSON, GAS DISTRIBUTION AND EMERGENCY CLERK IN TO SEE PATIENT, UPDATE GIVEN. ORDERS RECEIVED AND CARRIED OUT.
[2019-02-13] MEDS ORDERED: BISACODYL 10 MG SUPP.RECT RC PRN (10:15)
[2019-02-13] MEDS ORDERED: LACTULOSE 20 GM/30 ML UDCUP PO PRN (10:15)
[2019-02-13 10:43] LABS: INR 1.19 (0.85-1.15); PROTHROMBIN TIME 12.4 SEC (9.6-11.6)
--- NOTE | 2019-02-13 11:05 | NUR ---
RESPIRATORY RATE 28/MIN AND SHALLOW. PLACED BACK ON BI PAP BY GABRIELA RT. FIO2 40%. WILL CONTINUE TO MONITOR. RE-APPLIED MITTENS DUE TO PATIENT PULLING OFF BIPAP MASK.
--- NOTE | 2019-02-13 13:10 | NUR ---
EDUCATION COMPLETED. Pt CURRENTLY ON BIPAP NOT ABLE TO PARTICIPATE IN MBSS AT THIS TIME. DAUGHTER AT BEDSIDE AT THIS TIME. SOFT TOP INSTALLER EDUCATED Pt'S DAUGHTER ON HOW TO REACH NECTAR-THICK LIQUIDS. DAUGHTER DEMONSTRATED UNDERSTANDING BY THICKENING WATER. ASPIRATION PRECAUTION SIGN PLACED ON HEAD OF THE BED INCLUDING: PUREED, NECTAR-THICK LIQUIDS; SEATED AT 90, SLOW RATE, SMALL BITES AND SIPS, PILLS CRUSHED. SOFT TOP INSTALLER COORDINATED CARE WITH NURSE SOREN. MBSS TO BE RESCHEDULED FOR TOMORROW. ALL QUESTIONS ANSWERED AT THIS TIME. SOFT TOP INSTALLER COORDINATED DIET RECOMMENDATIONS WITH NEEDLE PUNCH MACHINE OPERATOR HELPER. Addendum: 02/13/19 at 1314 by NASIR OSBORNE [facility] Amended: Links added.
--- NOTE | 2019-02-13 13:42 | NUR ---
DC PLANNING SPOKE TO DAUGHTER, OBTAINED JHONNY FOR [facility]. REFERRAL TO [facility] GIVEN TO FACILITY FITTER AND TURNER, KAYLENE. PENDING DC TO FACILITY.
--- NOTE | 2019-02-13 14:45 | NUR ---
REMOVED BI PAP AND PLACED ON 5L NC O2 FOR LUNCH MEAL. ALSO GIVEN LACTULOSE 30 CC PO. LAST BM 02/07/19.
[2019-02-13] MEDS: SODIUM CHLORIDE 0.9% 1000ML 1,000 ML IV SCH (14:51)
--- NOTE | 2019-02-13 17:16 | NUR ---
RD FOLLOW UP NOTE Noted Pt LBM 02/07; Recommend Stool Softener/laxative secondary to constipation. Pt with Puree, NTL Diet in place. Recommend Ensure TID with meals. LBM 02/07/19. Pt monitored labs: CO2 34, BUN 29, GFR 56, Alb 2.2. RD to continue to monitor. Please notify RD as additional nutrition concerns arise. Thank you. Addendum: 02/13/19 at [address] RD Amended: Links added.
--- NOTE | 2019-02-13 17:50 | NUR ---
HAD LARGE SEMI-FORM YELLOW BOWEL MOVEMENT. KATIUSKA CARE COMPLETED.
[2019-02-13] MEDS: DONEPEZIL HCL 5 MG TAB PO SCH (18:29)
[2019-02-13] MEDS: VANCOMYCIN 1GM+NS 250ML 250 ML IV SCH (18:30)
--- NOTE | 2019-02-13 19:00 | NUR ---
Assumed care at 1900. Patient in bed with family at bedside. Patient in no apparent distress. No pain reported. Please review assessment for further detail. Will continue to monitor.
[2019-02-14] VITALS (10 sets, daily range): BP systolic 95–120; BP diastolic 41–69
[2019-02-14] MEDS: MEROPENEM 500 MG VIAL IVP SCH ×3 (02:01→18:21)
[2019-02-14 03:44] LABS: HEMATOCRIT 39.7 % (36-48); MEAN CORPUSCULAR HEMOGLOBIN 31.1 pg (27.0-33.0); MEAN CORPUSCULAR HGB CONC 32.7 g/dL (32.0-36.0); MEAN CORPUSCULAR VOLUME 95.3 fL (79-99); PLATELET COUNT (AUTO) 238 K/uL (130-400); RED BLOOD CELL COUNT(AUTO) 4.16 MIL/uL (4.00-5.50); WHITE BLOOD COUNT (AUTO) 9.9 K/uL (4.8-10.8)
[2019-02-14 04:10] LABS: ALANINE AMINOTRANSFERASE 21 U/L (12-78); ALBUMIN 1.8 g/dL (3.5-5.0); ASPARTATE AMINOTRANSFERASE 28 U/L (10-37); BILIRUBIN,TOTAL 0.5 mg/dL (0.2-1.0); CARBON DIOXIDE 30 mmol/L (21-32); CHLORIDE 108 mmol/L (101-111); CREATININE 0.9 mg/dL (0.5-1.5); GLOMERULAR FILTR. RATE CALC 63 mL/min (>60); GLUCOSE,RANDOM 116 mg/dL (70-105); POTASSIUM 4.6 mmol/L (3.5-5.1); SODIUM SERUM 144 mmol/L (136-145); THYROID STIMULATING HORMONE 2.03 uIU/mL (0.36-3.74); TOTAL PROTEIN, SERUM 5.6 g/dL (6.0-8.3); UREA NITROGEN, BLOOD 30 mg/dL (7-18)
[2019-02-14] MEDS: SODIUM CHLORIDE 0.9% 1000ML 1,000 ML IV SCH ×2 (05:47→16:05)
[2019-02-14] MEDS: IPRATROPIUM/ALBUTEROL SULFATE 3 ML SOLUTION IH SCH ×4 (06:06→23:18)
[2019-02-14] MEDS: ALPRAZOLAM 0.5 MG TABLET PO SCH ×2 (09:00→21:00)
[2019-02-14] MEDS: Escitalopram Oxalate 20 MG PO SCH (09:00)
--- NOTE | 2019-02-14 09:00 | NUR ---
JERO HELD D/T BARIUM SWALLOW TEST PENDING FOR THIS MORNING.
[2019-02-14] MEDS: ZINC SULFATE 220 CAPSULE PO SCH (09:10)
[2019-02-14] MEDS: ASCORBIC ACID 500 MG TAB PO SCH (09:10)
[2019-02-14] MEDS: RISPERIDONE 1 MG TABLET PO SCH ×2 (09:11→21:00)
[2019-02-14] MEDS: VERAPAMIL HCL 80 MG TABLET PO SCH ×3 (09:11→21:00)
[2019-02-14] MEDS: APIXABAN 5 MG TABLET PO SCH ×2 (09:11→21:00)
[2019-02-14] MEDS: FAMOTIDINE/PF 20 MG/2 ML VIAL IV SCH (09:12)
[2019-02-14] MEDS: METOPROLOL TARTRATE 25 MG TAB PO SCH ×3 (09:14→21:06)
--- NOTE | 2019-02-14 11:44 | NUR ---
MBSS COMPLETED. PENETRATION WITH THIN LIQUIDS AND FROM REFLUXED BOLUS AFTER THE SWALLOW. RECOMMEND NPO UNTIL GI CONSULT. *WHEN CLEARED BY GI RECOMMEND RE-EVALUATION WITH POSSIBLE FINELY CHOPPED, NECTAR-THICK LIQUIDS. RECOMMENDATIONS: 1. GI CONSULT 2. RE-EVALUATION WHEN CLEARED BY GI 3. NPO Addendum: 02/14/19 at 1149 by NASIR OSBORNE, [facility] ST Amended: Links added.
[2019-02-14] MEDS: DONEPEZIL HCL 5 MG TAB PO SCH (17:00)
[2019-02-14] MEDS: VANCOMYCIN 1GM+NS 250ML 250 ML IV SCH (18:21)
[2019-02-14 18:42] LABS: BASOPHILS % (AUTO) 0.6 % (0.0-5.0); EOSINOPHILS % (AUTO) 0.4 % (0.0-8.0); LYMPHOCYTES % (AUTO) 9.9 % (21.0-51.0); MEAN CORPUSCULAR HEMOGLOBIN 31.7 pg (27.0-33.0); MEAN CORPUSCULAR HGB CONC 33.4 g/dL (32.0-36.0); MEAN CORPUSCULAR VOLUME 94.8 fL (79-99); MONOCYTES % (AUTO) 7.9 % (3.0-13.0); NEUTROPHILS % (AUTO) 81.2 % (40.0-77.0); PLATELET COUNT (AUTO) 242 K/uL (130-400); RED BLOOD CELL COUNT(AUTO) 4.12 MIL/uL (4.00-5.50); RED CELL DISTRIBUTION WIDTH 13.9 % (11.0-15.5); WHITE BLOOD COUNT (AUTO) 8.9 K/uL (4.8-10.8)
[2019-02-14 18:55] LABS: INR 1.16 (0.85-1.15); PROTHROMBIN TIME 12.1 SEC (9.6-11.6)
--- NOTE | 2019-02-14 19:00 | NUR ---
Assumed care at 1900. Patient resting comfortably in bed. Patient being supplemented with 4L NC. Patient in no apparent distress. Patient NPO due to failed MBSS. Please see physical assessment for further detail. Will continue to monitor.
[2019-02-14 19:56] LABS: CREATININE 0.8 mg/dL (0.5-1.5); POTASSIUM 4.8 mmol/L (3.5-5.1)
[2019-02-14] MEDS ORDERED: IPRATROPIUM/ALBUTEROL SULFATE 3 ML SOLUTION IH ONE (22:33)
[2019-02-15] VITALS (8 sets, daily range): BP systolic 84–140; BP diastolic 35–74
[2019-02-15] MEDS ORDERED: DEXTROSE 50%-WATER 50 ML DISP.SYRIN IV PRN (01:15)
[2019-02-15] MEDS ORDERED: DILTIAZEM HCL 125 MG/25 ML 125 MG in SODIUM CHLORIDE 0.9% 100 ML IV PRN (01:15)
[2019-02-15] MEDS ORDERED: GLUCAGON 1MG KIT 1 MG ML IM PRN (01:15)
[2019-02-15] MEDS: MEROPENEM 500 MG VIAL IVP SCH ×3 (02:59→18:41)
[2019-02-15] MEDS ORDERED: DILTIAZEM HCL 125 MG/25 ML VIAL IV ONE (03:15)
[2019-02-15] MEDS ORDERED: SODIUM CHLORIDE 0.9% 100 ML IV ONE (03:16)
[2019-02-15] MEDS ORDERED: DILTIAZEM HCL 5 MG/ML 10 ML VIAL IV ONE (03:16)
[2019-02-15] MEDS: DILTIAZEM HCL 125 MG/25 ML 125 MG in SODIUM CHLORIDE 0.9% 100 ML IV SCH (03:44)
[2019-02-15 03:59] LABS: HEMATOCRIT 39.2 % (36-48); MEAN CORPUSCULAR HEMOGLOBIN 31.8 pg (27.0-33.0); MEAN CORPUSCULAR VOLUME 96.5 fL (79-99); PLATELET COUNT (AUTO) 225 K/uL (130-400); RED BLOOD CELL COUNT(AUTO) 4.06 MIL/uL (4.00-5.50); WHITE BLOOD COUNT (AUTO) 7.6 K/uL (4.8-10.8)
[2019-02-15 04:16] LABS: CARBON DIOXIDE 31 mmol/L (21-32); CHLORIDE 109 mmol/L (101-111); CREATININE 0.7 mg/dL (0.5-1.5); GLOMERULAR FILTR. RATE CALC 84 mL/min (>60); GLUCOSE,RANDOM 88 mg/dL (70-105); PHOSPHORUS 3.1 mg/dL (2.5-4.9); POTASSIUM 4.7 mmol/L (3.5-5.1); SODIUM SERUM 146 mmol/L (136-145); UREA NITROGEN, BLOOD 30 mg/dL (7-18)
[2019-02-15 04:55] LABS: ABG BASE EXCESS 2.2 mmol/L (-2.0-3.0); ABG HCO3 29.9 mmol/L (21.0-28.0); ABG PCO2 59 mmHg (32-45)
[2019-02-15] MEDS: METOPROLOL TARTRATE 25 MG TAB PO SCH ×3 (06:00→19:46)
[2019-02-15] MEDS: IPRATROPIUM/ALBUTEROL SULFATE 3 ML SOLUTION IH SCH ×4 (07:00→23:32)
[2019-02-15] MEDS: ALPRAZOLAM 0.5 MG TABLET PO SCH ×2 (09:00→19:47)
[2019-02-15] MEDS: Escitalopram Oxalate 20 MG PO SCH (09:00)
[2019-02-15] MEDS: LORAZEPAM 2 MG/ML 1 ML VIAL IVP PRN (10:21)
[2019-02-15] MEDS: SODIUM CHLORIDE 0.9% 1000ML 1,000 ML IV SCH (10:28)
[2019-02-15] MEDS: ZINC SULFATE 220 CAPSULE PO SCH (10:28)
[2019-02-15] MEDS: RISPERIDONE 1 MG TABLET PO SCH ×2 (10:28→19:47)
[2019-02-15] MEDS: VERAPAMIL HCL 80 MG TABLET PO SCH ×3 (10:28→19:46)
[2019-02-15] MEDS: ASCORBIC ACID 500 MG TAB PO SCH (10:29)
[2019-02-15] MEDS: FAMOTIDINE/PF 20 MG/2 ML VIAL IV SCH (10:30)
--- NOTE | 2019-02-15 11:00 | NUR ---
FOLLOW-UP. Pt CURRENTLY NPO. Pt WITH GI SERIES COMPLETED. Pt WITH RECOMMENDATION FOR A PEG TUBE SECONDARY TO GI SERIES FINDINGS. Pt WITH ESOPHAGEAL MOTILITY ISSUES. SKILLED SPEECH THERAPY IS NOT RECOMMENDED AT THIS TIME SECONDARY TO NATURE OF DYSPHAGIA (ESOPHAGEAL). Addendum: 02/15/19 at 1106 by NASIR OSBORNE, SPT ST Amended: Links added.
--- NOTE | 2019-02-15 14:23 | NUR ---
Nutrition f/u: TF consult Received for PEG feeding. Pt currently with NGT placed, plans for PEG placement on Wednesday. Recommendations: Continuous feeds: Goal rate of 45ml/hr, 145ml flush Q6H. Monitor I/O. Monitor TF tolerance. If applicable, RD to return with bolus feeds after PEG placement. Addendum: 02/15/19 at [address] RD Amended: Links added.
[2019-02-15] MEDS: DONEPEZIL HCL 5 MG TAB PO SCH (16:07)
[2019-02-15] MEDS: VANCOMYCIN 1GM+NS 250ML 250 ML IV SCH (18:41)
--- NOTE | 2019-02-15 20:00 | NUR ---
TUBE FEEDING STARTED, JEVITY 1.5 @25ML/HR. NG TUBE PLACEMENT VERIFIED VIA AIR BOLUS. FAMILY AT BEDSIDE. HIGH FOWLERS PLACEMENT. PT ABLE TO VERBALIZE CONCERNS. GBW NOTED. EDEMA TO GENERAL BODY. RHONCHI/CRACKLES NOTED TO LOWER BASES. WILL NOTIFY DR. PABLO.
--- NOTE | 2019-02-15 22:30 | NUR ---
DR. PABLO ROUNDING. NEW ORDER FOR LASIX 20MG Q8. 20MG X1 DOSE NOW. DC IV FLUIDS.
[2019-02-15] MEDS ORDERED: FUROSEMIDE 10 MG/ML 10ML VIAL IVP SCH (22:45)
[2019-02-16] MEDS: MEROPENEM 500 MG VIAL IVP SCH ×2 (02:53→11:23)
[2019-02-16 03:52] LABS: HEMATOCRIT 39.1 % (36-48); MEAN CORPUSCULAR HEMOGLOBIN 31.4 pg (27.0-33.0); MEAN CORPUSCULAR HGB CONC 32.5 g/dL (32.0-36.0); MEAN CORPUSCULAR VOLUME 96.5 fL (79-99); NUCLEATED RED BLOOD CELLS 0.1 % (0.0-0.19); PLATELET COUNT (AUTO) 244 K/uL (130-400); RED BLOOD CELL COUNT(AUTO) 4.06 MIL/uL (4.00-5.50); WHITE BLOOD COUNT (AUTO) 8.2 K/uL (4.8-10.8)
[2019-02-16 04:03] LABS: CREATININE 0.9 mg/dL (0.5-1.5); MAGNESIUM 1.9 mg/dL (1.80-2.40); POTASSIUM 4.5 mmol/L (3.5-5.1)
[2019-02-16 04:09] LABS: B-TYPE NATRIURETIC PEPTIDE 650 pg/mL (0-100)
[2019-02-16 04:30] VITALS: BP_SYST 106; BP_SYST 122; BP_DIAS 59; BP_DIAS 77
[2019-02-16] MEDS: INSULIN HUMULIN R 100 UNIT/ML 3ML SQ SCH ×2 (06:00→12:00)
[2019-02-16] MEDS: METOPROLOL TARTRATE 25 MG TAB PO SCH ×2 (06:16→11:22)
--- NOTE | 2019-02-16 06:34 | NUR ---
TOLERATING FEEDING WELL. LESS THAN 10ML OF RESIDUAL. ON BIPAP. NG TUBE PLACEMENT VERIFIED AGAIN BY AIR BOLUS AND MORNING MEDICATIONS GIVEN VIA NG TUBE. DAUGHTER AT BEDSIDE.
[2019-02-16] MEDS: IPRATROPIUM/ALBUTEROL SULFATE 3 ML SOLUTION IH SCH ×2 (06:36→11:24)
[2019-02-16 07:50] VITALS: BP 97/71
[2019-02-16] MEDS: RISPERIDONE 1 MG TABLET PO SCH ×2 (09:00→11:44)
[2019-02-16] MEDS ORDERED: FUROSEMIDE 10 MG/ML 2ML VIAL IVP SCH (09:00)
[2019-02-16] MEDS: Escitalopram Oxalate 20 MG PO SCH (09:00)
[2019-02-16] MEDS: ALPRAZOLAM 0.5 MG TABLET PO SCH ×2 (09:00→11:44)
[2019-02-16] MEDS: VERAPAMIL HCL 80 MG TABLET PO SCH (11:22)
[2019-02-16] MEDS: ASCORBIC ACID 500 MG TAB PO SCH (11:22)
[2019-02-16] MEDS: ZINC SULFATE 220 CAPSULE PO SCH (11:22)
[2019-02-16] MEDS: FAMOTIDINE/PF 20 MG/2 ML VIAL IV SCH (11:23)
[2019-02-16 11:37] VITALS: BP 97/59
--- NOTE | 2019-02-16 14:26 | NUR ---
DC PLAN PATIENT ACCEPTED TO [facility]. MD RAWLS WITH PATIENT GOING TO FACILITY AND HAVING PEG DONE THERE. MOT DONE AND IN CHART. PATIENT WILL GO VIA EMS BED BOUND ON . DC PLAN FOR TODAY. Addendum: 02/16/19 at 1429 by FABIOLA ODEN RN CM Amended: Links added.
[2019-02-16 14:49] VITALS: BP 97/47
--- NOTE | 2019-02-16 15:35 | NUR ---
report given to paul Cordon From [facility] paged.
--- NOTE | 2019-02-16 15:40 | NUR ---
PT D/C TO [facility] REPORT GIVEN TO ROME ANAND. DAUGHTER WAS GIVEN INSTRUCTIONS RE; PLAN OF CARE. PT ON 4L NC SAT 96%. IN NO DISTRESS, NGTUBE INTACT TO RIGHT NARE PER AIR AUSCULTATION AND RESIDUAL. PICC LINE TO ERNESTINE INTACT, NO BLEEDING, FLUSHED W 10MLS OF NS. EMS HERE TO TRANSFER PT TO [facility].
== END 2019-02-16 16:00 | DRG 871 ==
LOC: EDH 14:06 → EDHIP 16:27 → 2BH 19:11 → 2CH 02-14 04:22 → 2DH 02-15 18:55
PROVIDERS: ADMIT Internal Medicine; ATTEND Internal Medicine
PROC: 5A09357 Assistance with Respiratory Ventilation, Less than 24 Consecutive Hours, Continuous Positive Airway Pressure (ICD-10-PCS; 2019-02-08)
PROC: 5A09357 Assistance with Respiratory Ventilation, Less than 24 Consecutive Hours, Continuous Positive Airway Pressure (ICD-10-PCS; 2019-02-11)
PROC: 5A09357 Assistance with Respiratory Ventilation, Less than 24 Consecutive Hours, Continuous Positive Airway Pressure (ICD-10-PCS; 2019-02-12)
PROC: 02HV33Z Insertion of Infusion Device into Superior Vena Cava, Percutaneous Approach (ICD-10-PCS; principal; 2019-02-13)
PROC: 5A09357 Assistance with Respiratory Ventilation, Less than 24 Consecutive Hours, Continuous Positive Airway Pressure (ICD-10-PCS; 2019-02-13)
PROC: 5A09357 Assistance with Respiratory Ventilation, Less than 24 Consecutive Hours, Continuous Positive Airway Pressure (ICD-10-PCS; 2019-02-14)
PROC: 5A09357 Assistance with Respiratory Ventilation, Less than 24 Consecutive Hours, Continuous Positive Airway Pressure (ICD-10-PCS; 2019-02-15)
PROC: 5A09357 Assistance with Respiratory Ventilation, Less than 24 Consecutive Hours, Continuous Positive Airway Pressure (ICD-10-PCS; 2019-02-16)
DX: A41.51 Sepsis due to Escherichia coli [E. coli] (principal); R65.21 Severe sepsis with septic shock; I26.99 Other pulmonary embolism without acute cor pulmonale; J96.21 Acute and chronic respiratory failure with hypoxia; I50.31 Acute diastolic (congestive) heart failure; J69.0 Pneumonitis due to inhalation of food and vomit; N39.0 Urinary tract infection, site not specified; J44.1 Chronic obstructive pulmonary disease with (acute) exacerbation; J44.0 Chronic obstructive pulmonary disease with (acute) lower respiratory infection; E44.0 Moderate protein-calorie malnutrition; Z16.24 Resistance to multiple antibiotics; G93.49 Other encephalopathy; Z16.12 Extended spectrum beta lactamase (ESBL) resistance; D68.69 Other thrombophilia; E66.2 Morbid (severe) obesity with alveolar hypoventilation; E86.1 Hypovolemia; F32.9 Major depressive disorder, single episode, unspecified; F03.90 Unspecified dementia, unspecified severity, without behavioral disturbance, psychotic disturbance, mood disturbance, and anxiety; I48.91 Unspecified atrial fibrillation; F41.1 Generalized anxiety disorder; F17.200 Nicotine dependence, unspecified, uncomplicated; I08.0 Rheumatic disorders of both mitral and aortic valves; H54.61 Unqualified visual loss, right eye, normal vision left eye; G89.4 Chronic pain syndrome; R47.02 Dysphasia; I11.0 Hypertensive heart disease with heart failure; F60.7 Dependent personality disorder; G35 Multiple sclerosis; I27.20 Pulmonary hypertension, unspecified; Z99.81 Dependence on supplemental oxygen; Z86.73 Personal history of transient ischemic attack (TIA), and cerebral infarction without residual deficits; Z88.8 Allergy status to other drugs, medicaments and biological substances; Z90.49 Acquired absence of other specified parts of digestive tract; Z74.01 Bed confinement status; Z68.33 Body mass index [BMI] 33.0-33.9, adult; Z79.01 Long term (current) use of anticoagulants
CPT/HCPCS: 36415; 36600; 70450; 71045; 71275; 74230; 74240; 80048; 80053; 80202; 80305; 81001; 82040; 82550; 82803; 82948; 83036; 83605; 83735; 83874; 83880; 84100; 84145; 84443; 84484; 85025; 85027; 85610; 85730; 87040; 87077; 87088; 87186; 92526; 92610; 92611; 93005; 93306; 93970; 94640; 94660; 94664; 97039; 99291; C1894; G0378; J0282; J0696; J1650; J1940; J2060; J2185; J3370; J3475; J3490; J7030; J7040; J7060; Q9967